=== PATIENT | female | born 1960 | race Caucasian/White ===

== ENCOUNTER 2019-07-23 10:50 | Outpatient (CLI) | payer OTHER, SELFPAY ==
--- NOTE | ~2019-07-23 | MM_ITS ---
EXAMINATION: MM screening [facility] BI w minh HISTORY: Screening mammogram TECHNIQUE: Craniocaudal and mediolateral oblique 3-D tomosynthesis images were obtained and synthetic 2-D images were generated. CAD analysis was submitted and interpreted. COMPARISON: 07/17/2018, 07/16/2017, 07/31/2016 BREAST PARENCHYMAL COMPOSITION: There are scattered areas of fibroglandular density. FINDINGS: There is no evidence of suspicious mass, calcification, or architectural distortion to sugg est malignancy in either breast. There has been no suspicious interval change. IMPRESSION: 1. No mammographic evidence of malignancy. 2. Recommend routine screening mammography in one year. BI-RADS Category 1: Negative Reviewed, dictated and finalized at location A.
== END 2019-07-23 10:51 | disposition home or self-care (01) ==
LOC: CHSIMG 10:54
PROVIDERS: PCP Family Medicine; Visit Provider Family Medicine
DX: Z12.31 Encounter for screening mammogram for malignant neoplasm of breast (principal)
CPT/HCPCS: 77063; 77067

== ENCOUNTER 2020-07-25 10:57 | Outpatient (CLI) | payer OTHER, SELFPAY ==
--- NOTE | ~2020-07-25 | MM_ITS ---
EXAMINATION: MM screening [facility] w min[facility] HISTORY: Screening TECHNIQUE: Craniocaudal and mediolateral oblique 3-D tomosynthesis images were obtained and synthetic 2-D images were generated. CAD analysis was submitted and interpreted. COMPARISON: Comparison to multiple prior studies sequentially, with oldest reviewed study dated 07/09. BREAST PARENCHYMAL COMPOSITION: There are scattered areas of fibroglandular density. FINDINGS: There is no evidence of suspicious mass, calcification, or architectural distortion to sugg est malignancy in either breast. There has been no suspicious interval change. IMPRESSION: 1. No mammographic evidence of malignancy. 2. Recommend routine screening mammography in one year. BI-RADS Category 1: Negative Reviewed, dictated and finalized at location A.
== END 2020-07-25 10:58 | disposition home or self-care (01) ==
LOC: CHSIMG 10:59
PROVIDERS: PCP Family Medicine; Visit Provider Family Medicine
DX: Z12.31 Encounter for screening mammogram for malignant neoplasm of breast (principal)
CPT/HCPCS: 77063; 77067

== ENCOUNTER 2021-10-07 11:24 | Outpatient (CLI) | payer OTHER, SELFPAY ==
[2021-10-07 12:05] LABS: Anion Gap 5 mmol/L (8-16); Blood Urea Nitrogen 11 mg/dL (7-17); Calcium 9.3 mg/dL (8.4-10.2); Carbon Dioxide 32 mmol/L (22-30); Chloride 101 mmol/L (98-107); Estimated Glomerular Filt Rate > 60; Glucose 306 mg/dL (65-110); Potassium 4.4 mmol/L (3.4-5.0); Sodium 138 mmol/L (137-145)
== END 2021-10-07 11:25 | disposition home or self-care (01) ==
LOC: ANHLAB 11:25
PROVIDERS: PCP Family Medicine; Visit Provider Anesthesiology
DX: E11.9 Type 2 diabetes mellitus without complications (principal)
CPT/HCPCS: 36415; 80048

== ENCOUNTER 2021-10-11 00:22 | Day surgery (SDC) | payer OTHER, SELFPAY ==
[2021-10-03 15:44] VITALS: BMI 30.2
--- NOTE | 2021-10-03 15:48 | SUR.PREOP ---
Report to the Outpatient Waiting Room, entrance under the green pavilion located off [facility], at time _1:15pm on date 10/11/21 . OR Time: _3:15 pm . - You and your visitor will be asked a series of questions to screen for COVID 19 for your protection. - Only one visitor is allowed at this time. - The patient visitor is requested to leave or wait in car when not with patient. - A mask is required within the hospital. Patients may have clear liquids (water, carbonated beverages, clear teas, apple juice) until 3 hours prior to surgery with a maximum of 20 ounces. - No food from midnight until time of surgery - Infants may have breast milk until 4 hours before surgery, formula 6 hours prior to surgery. - Children will be allowed to drink immediately following surgery. If applicable, please bring a bottle or sippy cup to assist with drinking. Juice, water, soda, and popsicles are readily available. For infants on formula, please bring formula the day of surgery. Pacifiers are allowed. Take the following medications with a SIP of water the morning of surgery: _metoprolol,escitaloprm Medications to discontinue per physician _vitamin supplements Date to take last dose__10/07/21 Please no make-up, nail slovenian, hairspray, perfume, deodorant, or body powder the day of surgery. No jewelry (including any body piercings) or valuables the day of surgery, leave them at home. Please take a shower or bath the night before, or the morning of, surgery with an antibacterial soap. Wear comfortable, loose fitting clothing. Children are encouraged to wear pajamas. - Jewelry must be removed prior to entering the operating room. Rings and piercings that are not removed may be cut off. - The hospital will not accept responsibility for valuables. - Please leave all valuables, including medications, at home the day of surgery. If you are going home after surgery, a licensed gas truck driver must drive you home. - NO public transportation without another adult. - We recommend that an adult stay with you for 24 hours following discharge. - We also recommend that you do not drive, make important decision, drink alcoholic beverages, or take any drugs that were not prescribed by your health care provider for at least 24 hours after your discharge time. For Pediatric surgeries, we recommend two adults accompany the child home (only one inside the building at this time). Follow any additional instructions given to you from your surgeon. If you or anyone in your household have experienced Covid symptoms in the past week, please notify your surgeon or the nurse liaison at the phone number below for possible testing. Telephone instructions given to [place] and asked if any additional questions and then verbalized understanding. Patient advised to call surgeon office or pre surgery nurse liaison [phone] if any additional questions.
--- NOTE | 2021-10-11 00:24 | PM.IMHP ---
H&P: HPI History of Present Illness Date/Time: 10/11/21 00:24 Chief Complaint: Abnormal pelvic ultrasound Narrative: 61 y/o G0 who had an ultrasound exam because of pelvic pain. She has not had any vaginal bleeding. The ultrasound exam showed a myomatous uterus, with the largest fibroid measuring 1.7 cm. The endometrial complex is 6 mm thick. Adnexa are unremarkable. There is no free fluid. Review of Systems Review of Systems: All systems reviewed & are unremarkable except as noted in HPI and below PMFSH Past Medical History Medical History Depression Diabetes mellitus GERD (gastroesophageal reflux disease) Hyperlipidemia Hypertension Lung nodule Surgical History Surgical History History of lung biopsy Family History Family History Other Diabetes mellitus Hypertension Social History Social History Smoking status: Never smoker Drinks per week: 2 Living arrangements: with family Spiritual care concerns: No Meds Home Medications and Allergies Home Medications Medication Instructions Recorded Confirmed Type aspirin 81 mg tablet 81 mg PO DAILY 10/03/21 10/03/21 History escitalopram oxalate 10 mg tablet 1 tablet PO DAILY 10/03/21 10/03/21 History famotidine 20 mg tablet (Pepcid) 20 mg PO DAILY 10/03/21 10/03/21 History insulin glargine 100 unit/mL (3 50 unit subcut HS 10/03/21 10/03/21 History mL) subcutaneous pen (Lantus Solostar U-100 Insulin) insulin lispro 100 unit/mL sliding scale dose subcut 10/03/21 History subcutaneous pen (Humalog KwikPen (U-100) Insulin) losartan 50 mg tablet 1 tablet PO DAILY 10/03/21 10/03/21 History metoprolol succinate 25 mg 1 tablet PO DAILY 10/03/21 10/03/21 History tablet,extended release 24 hr multivitamin 1 cap PO DAILY 10/03/21 10/03/21 History simvastatin 40 mg tablet 1 tablet PO DAILY 10/03/21 10/03/21 History Allergies Allergy/AdvReac Type Severity Reaction Status Date / Time No Known Allergies Allergy Verified 10/03/21 15:20 Exam Const: Orientation/consciousness: patient oriented x3 Other: Well-developed, well-nourished female in no acute distress. Neck: Thyroid: thyroid normal Lymphatic: no lymphadenopathy noted (in neck, axilla or inguinal nodes) Resp: Effort & Inspection: normal respiratory effort Auscultation: clear to auscultation bilaterally Cardio: Rate: regular rate Rhythm: regular rhythm Heart sounds: S1 normal heart sound present and S2 normal heart sound present GI: Other: ABD: Soft, nontender, nondistended. No guarding or rebound tenderness. No hepatosplenomegaly. : General: Yes no CVA tenderness Other: Deferred to OR Back/Spine/Pelvis: Back: no CVA tenderness Skin: General skin exam: normal color and no rashes or lesions noted Neuro: General: patient oriented x3 Extrem: Other: Extremities: nontender with no edema Psych: Mental Status: mental status grossly normal Affect: normal affect Assessment and Plan Assessment and plan (1) Abnormal pelvic ultrasound: Code(s): R93.89 - Abnormal findings on diagnostic imaging of other specified body structures Status: Acute Assessment and Plan: A: Thickened endometrial complex in a postmenopausal woman with pain, but no vaginal bleeding. P: Reviewed observation vs. hysteroscopy with dilation and sharp curettage. We reviewed both options in detail. She understands risks of surgery to include risks of anesthesia, risks of pain, infection, bleeding, blood products, thromboembolic phenomena and damage to adjacent structures such as bowel, bladder, ureters, blood vessels and nerves. She understands all these risks and elects to proceed with hysteroscopy with dilation and sharp curettage.
[2021-10-11] MEDS: LACTATED RINGERS 1,000 ML 30 ML IV CONT (13:42)
[2021-10-11] MEDS: ACETAMINOPHEN 500 MG TABLET 1000 MG PO (13:42)
[2021-10-11 13:51] LABS: Glucose Point of Care 188 mg/dl (65-105)
[2021-10-11 14:00] VITALS: BP 155/96; PULSE 100; RESP 18; TEMP 37.4; O2SAT 98
--- NOTE | 2021-10-11 14:08 | WPDHPUPDATE1 ---
History and Physical Update Update Date/Time: 10/11/21 14:08 History and Physical has been reviewed, including an updated exam of the patient. There are NO changes in the patient's condition. Risks, benefits, and alternatives have been discussed and questions answered. Patient agrees to proceed with procedure.
--- NOTE | 2021-10-11 14:14 | WPDANESEPPF ---
Anes - Initial Pre Proc Eval Procedure: Operation Date: 10/11/21 15:15 Proposed Procedures p Hysteroscopy with Dilation and Curettage - Hector Pham MD Date/Time: 10/11/21 14:14 Surgeon: Hector Pham MD Pre Op Diagnosis: Thickened Endometrium Patient Data Age: 61 Gender: F Height: 1.57 m Weight: 75 kg Allergies Allergy/AdvReac Type Severity Reaction Status Date / Time No Known Allergies Allergy Verified 10/11/21 14:14 Home Medications Medication Instructions Recorded Confirmed Type aspirin 81 mg tablet 81 mg PO DAILY 10/03/21 10/03/21 History escitalopram oxalate 10 mg tablet 1 tablet PO DAILY 10/03/21 10/03/21 History famotidine 20 mg tablet (Pepcid) 20 mg PO DAILY 10/03/21 10/03/21 History insulin glargine 100 unit/mL (3 50 unit subcut HS 10/03/21 10/03/21 History mL) subcutaneous pen (Lantus Solostar U-100 Insulin) insulin lispro 100 unit/mL sliding scale dose subcut 10/03/21 History subcutaneous pen (Humalog KwikPen (U-100) Insulin) losartan 50 mg tablet 1 tablet PO DAILY 10/03/21 10/03/21 History metoprolol succinate 25 mg 1 tablet PO DAILY 10/03/21 10/03/21 History tablet,extended release 24 hr multivitamin 1 cap PO DAILY 10/03/21 10/03/21 History simvastatin 40 mg tablet 1 tablet PO DAILY 10/03/21 10/03/21 History Laboratory Tests 10/11/21 13:40 POC Capillary Glucose 188 mg/dl H mg/dl (65-105) Patient hx anesthesia problems: none Family hx anesthesia problems: none Results Review: All pre-operative results and documents have been reviewed as part of the pre-operative evaluation. [facility] Past Medical History Medical History Depression Diabetes mellitus GERD (gastroesophageal reflux disease) Hyperlipidemia Hypertension Lung nodule Surgical History Surgical History History of lung biopsy Family History Family History Other Diabetes mellitus Hypertension Social History Social History Smoking status: Never smoker Drinks per week: 2 Living arrangements: with family Spiritual care concerns: No Anes - Eval Final PreProcedure Day of Procedure 10/11/21 14:14 Patient weight: obese Heart: regular rate and rhythm Lungs: clear to auscultation Airway: Mallampati scale class II Neurological: alert and oriented Last oral intake: >/= 8 hours ASA classification: III Emergent: no Anesthetic plan: proceed Anesthesia type and monitoring: general GIVS Results Review: All pre-operative results and documents have been reviewed as part of the pre-operative evaluation. Informed Consent: The patient's anesthetic plan and its attendant risks and benefits were discussed with the patient/family/POA. Questions were solicited and answers provided to the satisfaction of the patient/family/POA.
[2021-10-11] MEDS: KETOROLAC 30 MG/ML VIAL (*BKC) IV PUSH (15:45)
[2021-10-11] MEDS: ceFAZolin SODIUM 1 GM VIAL 2 GM IV PUSH (15:45)
--- NOTE | 2021-10-11 15:53 | W.PM.PROC2 ---
Procedure Note - Detailed Date of Procedure 10/11/21 Pre-op Diagnosis Thickened Endometrium Post-op Diagnosis Same Procedure Performed Hysteroscopy Dilation and sharp curettage Surgeon Hector Pham MD Anesthesia MAC and Local (1% lidocaine paracervical block) Findings Sharply anteverted uterus. Small endometrial polyp, atrophic endometrium otherwise. Both tubal ostia seen. Description of Procedure The patient was taken to the operating room where she was prepared and draped in the usual sterile fashion in the dorsal lithotomy position. The bladder was drained with a red rubber catheter. A sterile speculum was placed into the vagina. The anterior lip of the cervix was grasped with single-tooth tenaculum. Ten mL of 1% lidocaine was administered in a paracervical block. The cervix was then gently dilated using Hegar dilators until a 7 mm dilator could be passed. Hysteroscopy was performed using sterile saline as a distention medium. Findings are as noted above. Sharp curettage was then performed, and scant endometrial curettings were collected on a Telfa pad and passed off to be sent to pathology. A final pass was made, probing with the polyp forceps, and there was some suspicion for perforation. The hysteroscope was briefly reintroduced, but no definitive perforation was able to be diagnosed. She was given 2 grams Ancef IV. Hemostasis was excellent. Sponge, lap, needle and instrument counts were correct. The patient was awakened and taken to the recovery room in stable condition. I was present and scrubbed through the entire procedure. I reviewed the operative findings and operative course, and possible perforation, with the patient's [place]. We reviewed instructions and precautions and I will see her back in 2 weeks in the office. Implants None Estimated Blood Loss 5 Drains No Packing No Pathology Yes (Endometrial curettings) Complications Other complications (Possible uterine perforation) Condition Stable Disposition PACU
[2021-10-11 15:54] VITALS: BP 132/83; PULSE 87; RESP 12; O2SAT 98
[2021-10-11 16:04] LABS: Glucose Point of Care 142 mg/dl (65-105)
[2021-10-11 16:20] VITALS: BP 131/87; PULSE 83; RESP 16; O2SAT 94
[2021-10-11 16:40] VITALS: BP 163/89; PULSE 80; RESP 16
--- NOTE | 2021-10-11 16:42 | SUR.PHASEII ---
1600 - peripad in place. no drainage present.
[2021-10-11 17:03] VITALS: BP 158/83; PULSE 67; RESP 16
== END 2021-10-11 17:10 | disposition home or self-care (01) ==
PROVIDERS: PCP Family Medicine; Visit Provider Obstetrics & Gynecology
PROC: 0U5B8ZZ Destruction of Endometrium, Via Natural or Artificial Opening Endoscopic (ICD-10-PCS; CPT 58563; principal; 2021-10-11 15:15)
DX: N84.0 Polyp of corpus uteri (principal); Z79.82 Long term (current) use of aspirin; Z79.4 Long term (current) use of insulin; F41.8 Other specified anxiety disorders; K21.9 Gastro-esophageal reflux disease without esophagitis; E78.5 Hyperlipidemia, unspecified; E11.9 Type 2 diabetes mellitus without complications; E66.9 Obesity, unspecified; Z68.30 Body mass index [BMI] 30.0-30.9, adult; I10 Essential (primary) hypertension; F32.A Depression, unspecified
CPT/HCPCS: 58558; 82948; 88305; A9270; J0690; J1885; J2250; J2704; J3010; J7030; J7120